=== PATIENT | male | born 1945 | race Caucasian/White ===

== ENCOUNTER 2018-12-03 22:43 | Inpatient (IN) | payer MEDICARE, OTHER ==
[~2018-12-03] VITALS: Ht 170.2 cm; Wt 68.5 kg
--- NOTE | 2018-12-03 22:50 | NUR ---
PT BIBRA FORM RESTRAUNT C/O CP AND SOB CONSTANT HICCUPS X1 WITH ETOH PER SON, AMOUNT NOT DISCLOSED, VS STABLE, PLACED ON ER BED 2, AWAITING TO BE EVAL.
--- NOTE | 2018-12-03 22:57 | NUR ---
SEEN AND EVAL BY DR RUIZ WITH ORDERS ENTERED AND CARRIED OUT. MEDS GIVEN.
[2018-12-03 23:17] LABS: BASOPHILS % (AUTO) 0.5 % (0.0-2.0); EOSINOPHILS % (AUTO) 1.2 % (0.0-6.0); HEMATOCRIT 43 % (39-51); LYMPHOCYTES # (AUTO) 2.2 /CMM (0.8-4.8); LYMPHOCYTES % (AUTO) 28.7 % (20.0-44.0); MEAN CORPUSCULAR HGB CONC 35 g/dl (31.0-36.0); MEAN CORPUSCULAR VOLUME 102 fL (80-96); MONOCYTES # (AUTO) 0.9 /CMM (0.1-1.30); MONOCYTES % (AUTO) 11.3 % (2.0-12.0); NEUTROPHILS # (AUTO) 4.4 /CMM (1.8-8.9); NEUTROPHILS % (AUTO) 58.3 % (43.0-81.0); PLATELET COUNT (AUTO) 189 /CMM (150-450); WHITE BLOOD COUNT (AUTO) 7.5 K/uL (4.3-11.0)
[2018-12-03 23:24] LABS: CALCIUM, SERUM 9.5 mg/dL (8.5-10.1); CARBON DIOXIDE 26 mmol/L (21-32); CHLORIDE 99 mmol/L (98-107); GLUCOSE 122 mg/dL (74-106); POTASSIUM 3.8 mmol/L (3.5-5.1); SODIUM SERUM 137 mmol/L (136-145); UREA NITROGEN, BLOOD 13 mg/dL (7-18)
[2018-12-03 23:26] LABS: MAGNESIUM 1.5 mg/dL (1.8-2.4)
[2018-12-03] MEDS ORDERED: METOCLOPRAMIDE HCL 10 MG/2 ML VIAL IV ONE (23:30)
[2018-12-03 23:34] LABS: ALANINE AMINOTRANSFERASE 54 U/L (12-78); ALBUMIN 3.8 g/dL (3.4-5.0); ALKALINE PHOSPHATASE 65 U/L (46-116); ASPARTATE AMINOTRANSFERASE 66 U/L (15-37); B-TYPE NATRIURETIC PEPTIDE 16 PG/ML (0-125); BILIRUBIN,DIRECT 0.2 mg/dL (0.0-0.2); BILIRUBIN,TOTAL 0.9 mg/dL (0.2-1.0); TOTAL PROTEIN, SERUM 7.3 g/dL (6.4-8.2)
[2018-12-03] MEDS ORDERED: METOCLOPRAMIDE HCL 10 MG/2 ML VIAL ONE (23:34)
--- NOTE | 2018-12-03 23:39 | NUR ---
THORAZINE 25 MG IV NOTED STOCKED IN [facility] NO NIGHT LOCKER.
[2018-12-03] MEDS ORDERED: IOHEXOL-350 100 ML VIAL IV ONE (23:52)
[2018-12-03] MEDS ORDERED: CT SWABBABLE VALVE TRANS SET 1 EA INFUS.SET MC ONE (23:53)
[2018-12-03] MEDS ORDERED: IV NS 0.9% 250 ML IV ONE (23:55)
[2018-12-04] VITALS (9 sets, daily range): BP systolic 128–159; BP diastolic 75–94
--- NOTE | 2018-12-04 00:50 | NUR ---
TBA TELE 113-1.
[2018-12-04] MEDS ORDERED: ONDANSETRON HCL/PF 4 MG/2 ML VIAL IVP PRN (01:00)
[2018-12-04] MEDS ORDERED: ZOLPIDEM TARTRATE 5 MG TABLET PO PRN (01:00)
[2018-12-04] MEDS ORDERED: IV NS 0.9% 1,000 ML IV SCH (01:00)
[2018-12-04] MEDS ORDERED: MAG HYDROX/AL HYDROX/SIMETH 30 ML UDC PO PRN (01:00)
[2018-12-04] MEDS ORDERED: Z GUARD REMEDY 2 OZ OINT TP PRN (01:00)
[2018-12-04] MEDS ORDERED: HYDROCODONE/APAP 5/325MG 1 EACH TABLET PO PRN (01:00)
[2018-12-04] MEDS ORDERED: MVI-12 10ML IV ONE (01:00)
[2018-12-04] MEDS ORDERED: ACETAMINOPHEN 325 MG TABLET PO PRN (01:00)
[2018-12-04] MEDS ORDERED: MAGNESIUM HYDROXIDE 30 ML UDC PO PRN (01:00)
--- NOTE | 2018-12-04 02:07 | NUR ---
CALLED FOR REPORT, GIVEN TO ROCIO CHARGE NURSE, PT GOING TO 113-1, PACKET TRANSFERED WITH PT.
--- NOTE | 2018-12-04 02:58 | NUR ---
RN NOTES CALLED AFTER HOUR PHARMACY ABOUT IV ORDER, ASKED TO CALL MD TO VERIFY. SPOKE TO DR. SEAY, ALSO NOTIFIED OF MG 1.5; WITH ORDERS NOTED AND CARRIED OUT. PRIMARY RN STACIA NOTIFIED
[2018-12-04] MEDS ORDERED: Magnesium 1GM/D5W 100ML PREMIX PIGGYBACK IV ONE (03:00)
[2018-12-04] MEDS ORDERED: MVI-12 10ML IV SCH (03:00)
--- NOTE | 2018-12-04 03:34 | NUR ---
INTERNATIONAL TRADE TEACHER NOTE UPON ASSESSMENT, PT IS AOX4, NO DISTRESS, AMBULATORY. ORIENTED TO ROOM AND CALL LIGHT. BED IN LOW AND LOCKED POSITION. IV ACCESS (L)AC 20G. PLACED ON TELEMONITOR (NSR). NPO EXCEPT MEDS. VOIDED IN TOILET PRIOR TO ASSESSMENT. LUNG SOUNDS CLEAR TO AUSCULTATION ACROSS ALL BROOKE. BOWEL SOUNDS PRESENT ALL 4 QUADS. NO PAIN REPORTED. NO HICCUPS NOTED. IV FLUIDS RUNNING ORDERED. DVT PUMP INITIATED. WILL CONTINUE TO MONITOR & PROCEED WITH ADMISSION.
[2018-12-04] MEDS ORDERED: Folic acid 1 MG in IV D5W 50 ML IV SCH (04:00)
[2018-12-04] MEDS ORDERED: Thiamine 100 MG in IV D5W 50 ML IV SCH (04:00)
[2018-12-04] MEDS ORDERED: FOLIC ACID IV ONE (04:30)
[2018-12-04] MEDS ORDERED: [UNRECOGNIZED DRUG - OTHER] IV ONE (04:30)
[2018-12-04] MEDS ORDERED: THIAMINE IV ONE (04:30)
[2018-12-04] MEDS ORDERED: MAGNESIUM IV ONE (04:30)
[2018-12-04] MEDS ORDERED: MVI ADULT IV ONE (04:30)
[2018-12-04] MEDS: Magnesium 1GM/D5W 100ML PREMIX 100 ML IV SCH ×3 (04:45→08:47)
--- NOTE | 2018-12-04 06:11 | NUR ---
0400 VERIFIED 2 TO 3 X WITH LIS AT AFTER HOUR PHARMACY RE: BANANA BAG ORDER; CLARIFIED ORDERS PER HER REQUEST; STILL HAS QUESTIONS ABOUT MVI; NO CALLS RECEIVED FROM HER BUT SAW HER NOTES. CALLED AFTER HOUR PHARMACY, SPOKE TO ELLIE THIS TIME AND EXPLAINED TO HER HOW MANY TIMES I HAD TO TALK TO LIS JUST TO GET THE ORDER STRAIGHT. SPOKE TO DR. SEAY EARLIER TO CLARIFY PER LIS'S REQUEST AND MD STATED HE WANTED A BANANA BAG BUT LIS COULD NOT ASSIST ME ON HOW TO ENTER THE ORDER. ELLIE WILL PUT IN CORRECT ORDER FOR A BANANA BAG; WILL CLARIFY WITH MD THIS AM ON HOW MANY DOSES. WILL TRY TO GET MEDS FROM EVENT EXECUTIVE TO MIX AND MAKE 1 ; IF NOT MAY START IN AM WHEN PHARMACY OPENS. SPOKE TO EVENT EXECUTIVE; WILL START IN THE MORNING AND WILL INFORM MD IN AM . PRIMARY RN, STACIA MADE AWARE
[2018-12-04 06:17] LABS: BASOPHILS % (AUTO) 0.3 % (0.0-2.0); EOSINOPHILS % (AUTO) 1.9 % (0.0-6.0); HEMATOCRIT 41 % (39-51); HEMOGLOBIN 14.1 g/dL (13.5-17.5); LYMPHOCYTES # (AUTO) 1.3 /CMM (0.8-4.8); LYMPHOCYTES % (AUTO) 18.6 % (20.0-44.0); MEAN CORPUSCULAR HGB CONC 35 g/dl (31.0-36.0); MEAN CORPUSCULAR VOLUME 103 fL (80-96); MONOCYTES # (AUTO) 0.8 /CMM (0.1-1.30); MONOCYTES % (AUTO) 11.1 % (2.0-12.0); NEUTROPHILS # (AUTO) 4.7 /CMM (1.8-8.9); NEUTROPHILS % (AUTO) 68.1 % (43.0-81.0); PLATELET COUNT (AUTO) 156 /CMM (150-450); RED BLOOD CELL COUNT(AUTO) 3.94 MIL/uL (4.5-6.0); WHITE BLOOD COUNT (AUTO) 6.9 K/uL (4.3-11.0)
[2018-12-04 06:28] LABS: CALCIUM, SERUM 8.9 mg/dL (8.5-10.1); CARBON DIOXIDE 26 mmol/L (21-32); CHLORIDE 103 mmol/L (98-107); CREATININE 0.9 mg/dL (0.6-1.3); GLUCOSE 100 mg/dL (74-106); MAGNESIUM 1.6 mg/dL (1.8-2.4); PHOSPHORUS 3.1 mg/dL (2.5-4.9); SODIUM SERUM 139 mmol/L (136-145); UREA NITROGEN, BLOOD 12 mg/dL (7-18)
[2018-12-04 06:40] LABS: CHOLESTEROL 230 mg/dL (<200); HDL CHOLESTEROL 74 mg/dL (40-60); LDL 139 mg/dL (0-99); TRIGLYCERIDES 64 mg/dL (30-150)
--- NOTE | 2018-12-04 07:02 | NUR ---
RN CLOSING NOTES PT RESTING IN BED NO CHANGE IN PTS CONDITION OVERNIGHT. NO C/O OF CP OVERNIGHT. ADMISSION COMPLETED. ALL NEEDS ANTICIPATED AND MET. BED IN LOW AND LOCKED POSITION. CALL LIGHT WITH IN REACH. WILL ENDORSE TO AM RN .
--- NOTE | 2018-12-04 07:42 | NUR ---
CLOTHES MODEL OPENING NOTES PT RECEIIVED RESTING IN BED. A/O X 3, NO C/O OF PAIN, CP, SOB. HR SR 86, AMBULATORY, LAC IV INTACT AND INFUSING, NO S/S OF DISTRESS. SAFETY MEASURES IN PLACE, CALL LIGHT WITHIN REACH, BED IN LOW LOCKED POSITION. WILL CONTINUE TO MONITOR.
[2018-12-04] MEDS: Thiamine 100 MG in IV D5W 50 ML IV SCH (08:47)
[2018-12-04] MEDS: Folic acid 1 MG in IV D5W 50 ML IV SCH (08:47)
[2018-12-04] MEDS ORDERED: METO-357 PO (09:42)
[2018-12-04] MEDS ORDERED: POLY15DR40 EACHEYE (09:42)
[2018-12-04] MEDS ORDERED: AMLO10TA7 PO (09:42)
[2018-12-04] MEDS ORDERED: TAMS-12 PO (09:42)
[2018-12-04] MEDS ORDERED: SIMV20TA6 PO (09:42)
[2018-12-04] MEDS ORDERED: CLON0.1T PO (09:42)
[2018-12-04] MEDS ORDERED: ZOLP5TAB8 PO (09:42)
[2018-12-04] MEDS ORDERED: DORZ10DR11 EACHEYE (09:42)
[2018-12-04] MEDS ORDERED: hydrALAZINE HCL IV 20 MG VIAL ONE (09:43)
[2018-12-04] MEDS ORDERED: IRBE150T28 PO (09:44)
--- NOTE | 2018-12-04 20:00 | NUR ---
RN INITIAL NOTES PT RECEIVED RESTING IN BED. A/O X 3, NO C/O OF PAIN, CP, SOB. HR SR 86, AMBULATORY, LAC IV INTACT AND INFUSING, NO S/S OF DISTRESS. SAFETY MEASURES IN PLACE, CALL LIGHT WITHIN REACH, BED IN LOW LOCKED POSITION. WILL CONTINUE TO MONITOR.
--- NOTE | 2018-12-04 20:31 | NUR ---
DOCKET SPECIALIST CLOSING NOTES PT RESTING IN BED. A/O X 3, NO C/O OF PAIN, CP, SOB. HR SR 86, AMBULATORY, LAC IV INTACT AND INFUSING, NO S/S OF DISTRESS. SAFETY MEASURES IN PLACE, CALL LIGHT WITHIN REACH, BED IN LOW LOCKED POSITION. CARE ENDORSED TO THIRD GRADE TEACHER RN.
[2018-12-04] MEDS: IV NS 0.9% 1,000 ML IV PRN (20:41)
[2018-12-05] VITALS (8 sets, daily range): BP systolic 138–170; BP diastolic 84–97
--- NOTE | 2018-12-05 06:53 | NUR ---
RN CLOSING NOTES PT RESTING IN BED NO CHANGE IN PTS CONDITION OVERNIGHT. ALL NEEDS ANTICIPATED AND MET. BED IN LOW AND LOCKED POSITION. CALL LIGHT WITH IN REACH. WILL ENDORSE TO AM RN .
--- NOTE | 2018-12-05 08:32 | NUR ---
RADIATOR TESTER OPENING NOTES PT RESTING IN BED. A/O X 3, NO C/O OF PAIN, CP, SOB. HR SR 86, AMBULATORY W/ STANDBY ASSISTANCE, LAC IV INTACT AND INFUSING, NO S/S OF DISTRESS. SAFETY MEASURES IN PLACE, CALL LIGHT WITHIN REACH, BED IN LOW LOCKED POSITION. WILL CONTINUE TO MONITOR
[2018-12-05] MEDS: Thiamine 100 MG in IV D5W 50 ML IV SCH (09:55)
[2018-12-05] MEDS: Folic acid 1 MG in IV D5W 50 ML IV SCH (09:55)
[2018-12-05] MEDS ORDERED: CLONIDINE HCL 0.1 MG TABLET PO PRN (10:30)
[2018-12-05] MEDS ORDERED: ZOLPIDEM TARTRATE 5 MG TABLET PO PRN (10:30)
[2018-12-05] MEDS ORDERED: POLYVINYL ALCOHOL 15 ML BOTTLE EACHEYE PRN (11:00)
[2018-12-05] MEDS: TAMSULOSIN 0.4 MG CAP.SR.24H PO SCH (11:10)
[2018-12-05] MEDS: AMLODIPINE BESYLATE 10 MG TABLET PO SCH (11:10)
[2018-12-05] MEDS: METOPROLOL SUCCINATE 50 MG TAB.SR.24H PO SCH (11:11)
[2018-12-05 11:31] LABS: ALANINE AMINOTRANSFERASE 48 U/L (12-78); ALBUMIN 3.3 g/dL (3.4-5.0); ALKALINE PHOSPHATASE 61 U/L (46-116); ASPARTATE AMINOTRANSFERASE 50 U/L (15-37); BILIRUBIN,TOTAL 1.6 mg/dL (0.2-1.0); CALCIUM, SERUM 9.3 mg/dL (8.5-10.1); CARBON DIOXIDE 26 mmol/L (21-32); CHLORIDE 104 mmol/L (98-107); GLUCOSE 106 mg/dL (74-106); LIPASE 388 U/L (73-393); POTASSIUM 4.4 mmol/L (3.5-5.1); SODIUM SERUM 141 mmol/L (136-145); TOTAL PROTEIN, SERUM 6.7 g/dL (6.4-8.2); UREA NITROGEN, BLOOD 18 mg/dL (7-18)
[2018-12-05] MEDS: TIMOLOL MAL/DORZOLAM HCL OPHTH 10 ML BOTTLE EACHEYE SCH ×2 (13:49→17:52)
--- NOTE | 2018-12-05 20:48 | NUR ---
TOWER EQUIPMENT INSTALLER CLOSING NOTES PT RESTING IN BED NO CHANGE IN PTS CONDITION. NO DISTRESS OR SOB NOTED. ALL NEEDS ANTICIPATED AND MET. BED IN LOW AND LOCKED POSITION. CALL LIGHT WITH IN REACH. CARE ENDORSED TO BOTTLING ATTENDANT RN. .
[2018-12-05] MEDS: SIMVASTATIN 20 MG TABLET PO SCH (21:37)
[2018-12-06] VITALS (9 sets, daily range): BP systolic 129–160; BP diastolic 68–91
--- NOTE | 2018-12-06 04:30 | NUR ---
RN NOTES, PATIENT NOTED WITH BP 160/91, AND CLONIDINE ADMINISTERED ORDERED, PATIENT ASYMPTOMATIC, WILL CONTINUE TO MONITOR CLOSELY.
--- NOTE | 2018-12-06 05:20 | NUR ---
RN NOTES, AFTER CLONIDINE ADMINISTRATION BLOOD PRESSURE RECHECKED AND NOTED 131/86, WILL CONTINUE TO MONITOR CLOSELY.
--- NOTE | 2018-12-06 06:39 | NUR ---
PROPOSAL ANALYST CLOSING NOTES, PATIENT RESTING IN BED SLEEPING AT THIS TIME BUT EASILY AROUSABLE TO VERBAL STIMULI, BREATHING EVEN AN UNLABORED, NO DISTRESS OR SOB NOTED AT THIS TIME, LEFT AC IV ACESS PATENT AND INTACT S/L, NO SIGNIFICANT CHANGE IN CONDITION DURING THE NIGHT, ALL NEEDS ANTICIPATED, BED LOCKED AND LOW POSITION, CALL LIGHT WITH IN REACH, WILL ENDORSED CONTINUITY OF CARE TO ONCOMING NURSE.
--- NOTE | 2018-12-06 07:00 | NUR ---
VETERINARY MANAGER OPENING NOTES RECEIVED BEDSIDE REPORT PATIENT ASLEEP IN BED ABLE TO AWAKE WITH VOICE AND TOUCH. A/O X4. NO SIGNS OR SYMPTOMS OF RESPIRATORY DISTRESS OR ACUTE PAIN NOTED. IV SALINE LOCK. AMBULATORY IN ROOM WITH BRP. SAFETY PRECAUTIONS IN PLACE BED IN LOW POSITION CALL LIGHT WITHIN REACH. WILL CONT TO MONITOR
[2018-12-06] MEDS: TAMSULOSIN 0.4 MG CAP.SR.24H PO SCH (08:40)
[2018-12-06] MEDS: AMLODIPINE BESYLATE 10 MG TABLET PO SCH (08:40)
[2018-12-06] MEDS: TIMOLOL MAL/DORZOLAM HCL OPHTH 10 ML BOTTLE EACHEYE SCH ×2 (08:41→17:51)
[2018-12-06] MEDS: METOPROLOL SUCCINATE 50 MG TAB.SR.24H PO SCH (08:41)
[2018-12-06] MEDS: Folic acid 1 MG in IV D5W 50 ML IV SCH (10:13)
[2018-12-06] MEDS: Thiamine 100 MG in IV D5W 50 ML IV SCH (10:13)
--- NOTE | 2018-12-06 10:15 | NUR ---
FACILITIES ENGINEERING MANAGER NOTES IV DISLODGED. NEW IV PLACED IN LFA #18 GAUGE PATENT WITH GOOD BLOOD RETURN
[2018-12-06] MEDS: IV NS 0.9% 1,000 ML IV PRN (11:34)
[2018-12-06] MEDS ORDERED: LORAZEPAM INJ 2 MG/ML VIAL IV PRN (13:00)
--- NOTE | 2018-12-06 13:04 | NUR ---
RN MS NOTES PATIENT STAYING ONE MORE DAY FOR ETOH WITHDRAWALS. WILL MONITOR AND ADMINISTER ATIVAN NEEDED
--- NOTE | 2018-12-06 19:17 | NUR ---
RN MS CLOSING NOTES NOTES BEDSIDE REPORT GIVEN PATIENT AWAKE A/O X4. NO SIGNS OR SYMPTOMS OF RESPIRATORY DISTRESS OR ACUTE PAIN NOTED. LFA #18 GAUGE IV SALINE LOCK.ATIVAN GIVEN X1 @ 1315 FOR TREMORS D/T ETOH WITHDRAW. AMBULATORY IN ROOM WITH BRP. SAFETY PRECAUTIONS IN PLACE BED IN LOW POSITION CALL LIGHT WITHIN REACH. WILL ENDORSE TO NOC
--- NOTE | 2018-12-06 19:40 | NUR ---
RN MS INITIAL NOTES, RECEIVED PATIENT IN BED AWAKE A/O X4, BREATHING EVEN AND UNLABORED, NO SIGNS OR SYMPTOMS OF RESPIRATORY DISTRESS/SOB OR ACUTE PAIN NOTED, LFA IV ACCESS 18 G S/L, ALL NEEDS PROVIDED, SAFETY PRECAUTIONS IN PLACE, BED LOCKED AND LOW POSITION, CALL LIGHT WITHIN REACH, WILL CONTINUE TO MONITOR CLOSELY.
[2018-12-06] MEDS: SIMVASTATIN 20 MG TABLET PO SCH (21:04)
[2018-12-07 04:00] VITALS: BP 140/93
--- NOTE | 2018-12-07 06:45 | NUR ---
RN CLOSING NOTES, PATIENT RESTING IN BED SLEEPING AT THIS TIME BUT EASILY AROUSABLE TO VERBAL STIMULI, BREATHING EVEN AN UNLABORED, NO DISTRESS OR SOB NOTED AT THIS TIME, LEFT FA IV ACESS PATENT AND INTACT S/L, NO SIGNIFICANT CHANGE IN CONDITION DURING THE NIGHT, ALL NEEDS ANTICIPATED AND PROVIDED, BED LOCKED AND LOW POSITION, CALL LIGHT WITH IN REACH, WILL ENDORSED CONTINUITY OF CARE TO ONCOMING NURSE.
[2018-12-07 06:58] LABS: BASOPHILS % (AUTO) 0.5 % (0.0-2.0); EOSINOPHILS % (AUTO) 5.2 % (0.0-6.0); HEMATOCRIT 43 % (39-51); HEMOGLOBIN 14.5 g/dL (13.5-17.5); LYMPHOCYTES # (AUTO) 1.5 /CMM (0.8-4.8); LYMPHOCYTES % (AUTO) 22.8 % (20.0-44.0); MEAN CORPUSCULAR HGB CONC 34 g/dl (31.0-36.0); MEAN CORPUSCULAR VOLUME 104 fL (80-96); MONOCYTES # (AUTO) 0.8 /CMM (0.1-1.30); MONOCYTES % (AUTO) 12.5 % (2.0-12.0); NEUTROPHILS # (AUTO) 3.9 /CMM (1.8-8.9); PLATELET COUNT (AUTO) 148 /CMM (150-450); RED BLOOD CELL COUNT(AUTO) 4.09 MIL/uL (4.5-6.0); WHITE BLOOD COUNT (AUTO) 6.7 K/uL (4.3-11.0)
[2018-12-07 07:24] LABS: CALCIUM, SERUM 9.5 mg/dL (8.5-10.1); CARBON DIOXIDE 28 mmol/L (21-32); CHLORIDE 99 mmol/L (98-107); CREATININE 1.1 mg/dL (0.6-1.3); GLUCOSE 104 mg/dL (74-106); MAGNESIUM 1.9 mg/dL (1.8-2.4); PHOSPHORUS 4.3 mg/dL (2.5-4.9); POTASSIUM 4.2 mmol/L (3.5-5.1); SODIUM SERUM 134 mmol/L (136-145); UREA NITROGEN, BLOOD 23 mg/dL (7-18)
[2018-12-07 08:00] VITALS: BP 143/78
[2018-12-07] MEDS: AMLODIPINE BESYLATE 10 MG TABLET PO SCH (08:50)
[2018-12-07] MEDS: TAMSULOSIN 0.4 MG CAP.SR.24H PO SCH (08:50)
[2018-12-07 08:51] VITALS: BP 143/78
[2018-12-07] MEDS: METOPROLOL SUCCINATE 50 MG TAB.SR.24H PO SCH (08:51)
[2018-12-07] MEDS: TIMOLOL MAL/DORZOLAM HCL OPHTH 10 ML BOTTLE EACHEYE SCH (08:52)
[2018-12-07 09:54] LABS: ALBUMIN 3.3 g/dL (3.4-5.0); BILIRUBIN,DIRECT 0.2 mg/dL (0.0-0.2); BILIRUBIN,TOTAL 0.9 mg/dL (0.2-1.0)
[2018-12-07] MEDS ORDERED: PANTOPRAZOLE 40 MG VIAL IV SCH (11:30)
[2018-12-07] MEDS ORDERED: SUCR1ORA4 PO (11:32)
[2018-12-07] MEDS ORDERED: PANT40TA2 PO (11:32)
[2018-12-07] MEDS ORDERED: SUCRALFATE 1 G/10 ML UDC PO SCH (12:00)
--- NOTE | 2018-12-07 14:00 | NUR ---
PATIENT CLEARED FOR DISCHARGE TO HOME BY MD. PATIENT ON ROOM AIR SATURATING WELL, NO PAIN , NO N/V , NO DISTRESS NOTED. EDUCATION AND D/C INSTRUCTIONS PROVIDED TO PATIENT AND HIS ( INCLUDING NEW PRESCRIPTION AND APPOINTMENT REMINDER). PATIENT VERBALIZED UNDERSTANDING.PT AMBULATORY, SKIN INTACT. IV LINE REMOVED, NO BLEEDING NOTED. ID WRIST BAND REMOVED, VALUABLES FORM SIGHED AND ALL BELONGINGS WITH THE PATIENT. PATIENT SAFELY TRANSFERRED TO [facility] BY AND SPRING TIER.
== END 2018-12-07 14:00 | disposition home or self-care (01) | DRG 896 ==
LOC: ER 22:55 → TELE1 12-04 01:21 → EDBD 12-04 01:21 → MEDSG1 12-06 11:47
PROVIDERS: ADMIT Internal Medicine; ATTEND Student in an Organized Health Care Education/Training Program
DX: F10.239 Alcohol dependence with withdrawal, unspecified (principal); K85.90 Acute pancreatitis without necrosis or infection, unspecified; D75.89 Other specified diseases of blood and blood-forming organs; I10 Essential (primary) hypertension; N40.0 Benign prostatic hyperplasia without lower urinary tract symptoms; E78.5 Hyperlipidemia, unspecified; K21.0 Gastro-esophageal reflux disease with esophagitis; Z85.118 Personal history of other malignant neoplasm of bronchus and lung; Z85.820 Personal history of malignant melanoma of skin; K76.0 Fatty (change of) liver, not elsewhere classified
CPT/HCPCS: 36415; 71045-TC; 80048-TC; 80053-TC; 80061-TC; 80076-TC; 83690-TC; 83735-TC; 83880; 84100-TC; 84484-TC; 85025-TC; 85730-TC; 87081-TC; G0378; G0480; J0360; J2060; J2765; J3230; J3411; J3475; J3490; J7030; J7050; J7060; Q9967

== ENCOUNTER 2018-12-12 13:03 | Outpatient (CLI) | payer MEDICARE, OTHER ==
[~2018-12-12 13:03] MED LIST: AMLO10TA7 PO; CLON0.1T PO; DORZ10DR11 EACHEYE; METO-357 PO; PANT40TA2 PO; POLY15DR40 EACHEYE; SIMV20TA6 PO; SUCR1ORA4 PO; TAMS-12 PO; ZOLP5TAB8 PO
[2018-12-12 14:07] VITALS: BP 131/81
== END 2018-12-12 23:59 | disposition home or self-care (01) ==
LOC: MSC 13:03
PROVIDERS: ATTEND Nurse Practitioner Acute Care
DX: F41.9 Anxiety disorder, unspecified (principal); F10.20 Alcohol dependence, uncomplicated; R25.1 Tremor, unspecified; K21.9 Gastro-esophageal reflux disease without esophagitis; R14.2 Eructation; I10 Essential (primary) hypertension; Z85.118 Personal history of other malignant neoplasm of bronchus and lung; Z85.820 Personal history of malignant melanoma of skin